=== PATIENT | male | born 1980 | race Caucasian/White ===

== ENCOUNTER 2018-10-28 17:15 | Emergency (ER) | payer SELFPAY ==
[2018-10-28 17:58] LABS: APPEARANCE,URINE CLEAR; BILIRUBIN,URINE NEGATIVE (NEGATIVE); COLOR,URINE YELLOW; GLUCOSE, URINE NEGATIVE (NEGATIVE); KETONES,URINE TRACE mg/dL (NEGATIVE); LEUKOCYTE ESTERASE,URINE NEGATIVE (NEGATIVE); NITRITE,URINE NEGATIVE (NEGATIVE); PROTEIN,URINE NEGATIVE (NEGATIVE); URINE SPECIFIC GRAVITY 1.024; UROBILINOGEN,URINE NEGATIVE mg/dL (<2.0)
--- NOTE | 2018-10-28 18:25 | ER Document Report ---
ED Medical Screen (RME) - General Chief Complaint: Psych Problem Stated Complaint: PSYCH EVAL/IVC Time Seen by Provider: 10/28/18 18:22 Mode of Arrival: Ambulatory Information source: Patient Notes: Patient presents with IVC paperwork for concerns that patient is suicidal and threatened to put a bullet in his brain. Patient is currently going through a divorce and has started using alcohol again. Patient states that he had been clean from alcohol for over 10 years but has since restarted and has also been using marijuana. hx: Anxiety, bipolar, depression I have greeted and performed a rapid initial assessment of this patient. A comprehensive ED assessment and evaluation of the patient, analysis of test results and completion of the medical decision making process will be conducted by additional ED providers. TRAVEL OUTSIDE OF THE [place] IN LAST 30 DAYS: No Physical Exam - Vital signs Vitals: Temp Pulse Resp BP Pulse Ox 98.3 F 82 18 138/79 H 97 10/28/18 17:28 10/28/18 17:28 10/28/18 17:28 10/28/18 17:28 10/28/18 17:28 - General General appearance: Appears well, Alert In distress: None - Psychological Associated symptoms: No: Uncooperative Course - Vital Signs Vital signs: Temp Pulse Resp BP Pulse Ox 98.3 F 82 18 138/79 H 97 10/28/18 17:28 10/28/18 17:28 10/28/18 17:28 10/28/18 17:28 10/28/18 17:28 - Laboratory Laboratory results interpreted by me: 10/28/18 17:27 Urine Ketones TRACE H
[2018-10-28 19:29] LABS: ABSOLUTE EOSINOPHILS # (AUTO) 0.1 10^3/uL (0.0-0.6); ABSOLUTE LYMPHOCYTES (AUTO) 1.1 10^3/uL (0.5-4.7); ABSOLUTE MONOCYTES (AUTO) 0.8 10^3/uL (0.1-1.4); ABSOLUTE NEUT (AUTO) 3.4 10^3/uL (1.7-8.2); BASOPHILS % (AUTO) 0.7 % (0-2); EOSINOPHILS % (AUTO) 1.1 % (0-6); HEMATOCRIT 47.6 % (37.9-51.0); LYMPHOCYTES % (AUTO) 21.2 % (13-45); MEAN CORPUSCULAR HEMOGLOBIN 31.1 pg (27.0-33.4); MEAN CORPUSCULAR HGB CONC 33.6 g/dL (32.0-36.0); MEAN CORPUSCULAR VOLUME 93 fl (80-97); MONOCYTES % (AUTO) 14.2 % (3-13); PLATELET COUNT 191 10^3/uL (150-450); RED BLOOD COUNT 5.14 10^6/uL (4.35-5.55); RED CELL DISTRIBUTION WIDTH 16.1 % (11.5-14.0); SEGMENTED NEUTROPHILS % (AUTO) 62.8 % (42-78); TOTAL CELLS COUNTED % (AUTO) 100 %; WHITE BLOOD COUNT 5.4 10^3/uL (4.0-10.5)
--- NOTE | 2018-10-28 19:45 | EKG REPORT ---
SEVERITY:- NORMAL ECG - SINUS RHYTHM : Confirmed by: Grace Hernandez MD 28-Oct-2018 19:44:43
[2018-10-28 19:49] LABS: ALANINE AMINOTRANSFERASE 78 U/L (21-72); ALBUMIN 4.3 g/dL (3.5-5.0); ALKALINE PHOSPHATASE 37 U/L (38-126); ANION GAP 7 (5-19); ASPARTATE AMINO TRANSFERASE 102 U/L (17-59); BILIRUBIN,DIRECT 0.3 mg/dL (0.0-0.4); BILIRUBIN,TOTAL 0.8 mg/dL (0.2-1.3); BLOOD UREA NITROGEN 17 mg/dL (7-20); CALCIUM 10.2 mg/dL (8.4-10.2); CARBON DIOXIDE 31 mmol/L (22-30); CHLORIDE 102 mmol/L (98-107); GLUCOSE 72 mg/dL (75-110); POTASSIUM 5.4 mmol/L (3.6-5.0); SODIUM 139.7 mmol/L (137-145); TOTAL PROTEIN 7.5 g/dL (6.3-8.2)
[2018-10-28 19:50] LABS: ACETAMINOPHEN < 10 ug/mL (10-30); ALCOHOL < 10 mg/dL (NONE DETECTED); SALICYLATE < 1.0 mg/dL (2.0-20.0)
[2018-10-28 20:16] LABS: URINE AMPHETAMINES SCREEN NEGATIVE; URINE BARBITURATES SCREEN NEGATIVE; URINE BENZODIAZEPINES SCREEN UNCONFIRMED POSITIVE; URINE COCAINE SCREEN NEGATIVE; URINE MARIJUANA (THC) SCREEN UNCONFIRMED POSITIVE; URINE METHADONE SCREEN NEGATIVE; URINE PHENCYCLIDINE SCREEN NEGATIVE
[2018-10-28] MEDS: FLUOXETINE HCL 20 MG CAPSULE PO SCH (20:51)
[2018-10-28] MEDS: HYDROXYZINE PAMOATE 50 MG CAPSULE PO SCH (21:01)
[2018-10-28] MEDS: CLONAZEPAM 1 MG TABLET PO SCH (21:01)
[2018-10-28] MEDS ORDERED: QUETIAPINE FUMARATE 25 MG TABLET PO SCH (22:00)
--- NOTE | 2018-10-28 22:27 | ER Document Report ---
Addendum entered and electronically signed by ANAYELI JENKINS DO 10/29/18 18:26: Discharge - Discharge Clinical Impression: Suicidal ideation, Substance abuse, Noncompliance with medication regimen Depression Qualifiers: Depression Type: unspecified Qualified Code(s): F32.9 - Major depressive disorder, single episode, unspecified Condition: Stable Disposition: HOME, SELF-CARE Additional Instructions: You have been evaluated both medical and behavioral health teams have been deemed appropriate for discharge. You have elected to return back home to [place] for your substance abuse treatment. The behavioral health team has spoken to both the treatment facility and your friend Farncisca who confirms she will pick you up from the airport and assist in entering treatment center. Your laboratory work-up has been provided to assist in the admissions process. If you choose to stay in the local area and would like assistance on substance abuse treatment here, you are encouraged to contact mobile crisis or return to the emergency department. CHRONIC ALCOHOLISM and ALCOHOL ABUSE: Your evaluation reveals evidence of chronic alcoholism, an addiction to alcohol. The tendency to alcoholism may be inherited. Chronic use of alcohol weakens muscles, causes fatty deposits in the liver, damages the stomach, makes you more prone to infections, and can cause defects in unborn children. In the long run, brain atrophy and cirrhosis of the liver result. You are also at greater risk for certain types of cancer, such as cancer of the mouth, throat, stomach, and liver. Counselling services are available to help you. In-hospital treatment programs often help. Support groups such as Alcoholics Anonymous can be very useful in beating this addiction. Your physician can make a referral for you. As alcoholics often are prone to other addictions, you should discuss your use of any other medications with the doctor. ALCOHOL WITHDRAWAL: Your symptoms are caused by alcohol withdrawal. After a period of frequent drinking, the brain and body are changed by the alcohol. When you quit or reduce your drinking, the nervous system becomes unstable. Withdrawal symptoms can start a few hours after your last drink, but sometimes don't begin until a couple of days later. Symptoms can include shakiness, sweating, insomnia, nausea, vomiting, fearfulness, hallucinations, and seizures. In addition to the acute effects of alcohol withdrawal, we often have to deal with the medical effects of alcoholism. These problems often include dehydration, stomach irritation, intestinal bleeding, low blood sugar, liver dis ease, and pancreas inflammation. Treatment for alcohol withdrawal includes mild sedatives, vitamins, and fluids. You need to be with someone who can help if symptoms become severe. Many patients can withdraw at home. Admission to the hospital or a detox facility may be necessary if withdrawal symptoms are severe and uncontrollable. Abstaining from alcohol is the only effective long-term treatment. If you start drinking again, you will not be able to control yourself after the first drink. Treatment programs are available. In addition, many alcoholics benefit from Alcoholics Anonymous or other support groups available through your counselor or mandaen vending machine refiller. AL-ANON and ALA-TEEN are support groups for friends and family members of an alcoholic. Go to the emergency room if you develop persistent vomiting, severe abdominal pain, fever, shortness of breath, hallucinations, uncontrollable tremors, or seizures. DEPRESSION: Your evaluation reveals that you have mental depression. While symptoms may be vague, they often include disturbance of sleep, fatigue, loss of appetite, and general loss of interest in life. While depression may be a side effect of drugs, or a reaction to a major change in your life, many cases have no known cause. If depression is acute, and related to a major loss in your life, you can expect it to clear completely with time. If you have been depressed a long time, are prone to repeated bouts of depression or low mood, or have been thinking of suicide, get help. Depression can be treated with anti-depressant medication and counselling. Long-term depression will often take a few weeks to clear, even with appropriate medication. Follow-up care is important. SUICIDAL IDEATION: Suicidal ideation is a common medical term for thoughts about suicide, which may be as detailed as a formulated plan, without the suicidal act itself. Although most people who undergo suicidal ideation do not commit suicide, some go on to make suicide attempts. The range of suicidal ideation varies greatly from fleeting to detailed planning, role playing, and unsuccessful attempts. While thoughts about suicide are common, most people do not carry out serious actions to commit suicide. Based upon your evaluation and discussion with you, we do not believe you are currently at risk to act upon your thoughts of suicide. You have agreed to return to the Emergency Department, at any time, if you feel inclined to act upon your suicidal thoughts. FOLLOW-UP CARE: If you have been referred to a physician for follow-up care, call the physicians office for an appointment as you were instructed or within the next two days. If you experience worsening or a significant change in your symptoms, notify the physician immediately or return to the Emergency Department at any time for re-evaluation. Prescriptions: Disulfiram [Antabuse 250 mg Tablet] 250 mg PO DAILY #10 tablet Referrals: [facility] [Outside] - Follow up as needed Scribe Attestation: 10/28/18 20:48 I personally performed the services described in the documentation, reviewed and edited the documentation which was dictated to the scribe in my presence, and it accurately records my words and actions. Addendum entered and electronically signed by BAHMAN FAGAN LCSWA 10/29/18 17:46: Discharge - Discharge Clinical Impression: Suicidal ideation, Substance abuse, Noncompliance with medication regimen Depression Qualifiers: Depression Type: unspecified Qualified Code(s): F32.9 - Major depressive disord er, single episode, unspecified Condition: Stable Disposition: HOME, SELF-CARE Additional Instructions: You have been evaluated both medical and behavioral health teams have been deemed appropriate for discharge. You have elected to return back home to [place] for your substance abuse treatment. The behavioral health team has spoken to both the treatment facility and your friend Francisca who confirms she will pick you up from the airport and assist in entering treatment center. Your laboratory work-up has been provided to assist in the admissions process. If you choose to stay in the local area and would like assistance on substance abuse treatment here, you are encouraged to contact mobile crisis or return to the emergency department. CHRONIC ALCOHOLISM and ALCOHOL ABUSE: Your evaluation reveals evidence of chronic alcoholism, an addiction to alcohol. The tendency to alcoholism may be inherited. Chronic use of alcohol weakens muscles, causes fatty deposits in the liver, damages the stomach, makes you more prone to infections, and can cause defects in unborn children. In the long run, brain atrophy and cirrhosis of the liver result. You are also at greater risk for certain types of cancer, such as cancer of the mouth, throat, stomach, and liver. Counselling services are available to help you. In-hospital treatment programs often help. Support groups such as Alcoholics Anonymous can be very useful in beating this addiction. Your physician can make a referral for you. As alcoholics often are prone to other addictions, you should discuss your use of any other medications with the doctor. ALCOHOL WITHDRAWAL: Your symptoms are caused by alcohol withdrawal. After a period of frequent drinking, the brain and body are changed by the alcohol. When you quit or reduce your drinking, the nervous system becomes unstable. Withdrawal symptoms can start a few hours after your last drink, but sometimes don't begin until a couple of days later. Symptoms can include shakiness, sweating, insomnia, nausea, vomiting, fearfulness, hallucinations, and seizures. In addition to the acute effects of alcohol withdrawal, we often have to deal with the medical effects of alcoholism. These problems often include dehydration, stomach irritation, intestinal bleeding, low blood sugar, liver disease, and pancreas inflammation. Treatment for alcohol withdrawal includes mild sedatives, vitamins, and fluids. You need to be with someone who can help if symptoms become severe. Many patients can withdraw at home. Admission to the hospital or a detox facility may be necessary if withdrawal symptoms are severe and uncontrollable. Abstaining from alcohol is the only effective long-term treatment. If you start drinking again, you will not be able to control yourself after the first drink. Treatment programs are available. In addition, many alcoholics benefit from Alcoholics Anonymous or other support groups available through your counselor or mandaen vending machine refiller. AL-ANON and ALA-TEEN are support groups for friends and family members of an alcoholic. Go to the emergency room if you develop persistent vomiting, severe abdominal pain, fever, shortness of breath, hallucinations, uncontrollable tremors, or seizures. DEPRESSION: Your evaluation reveals that you have mental depression. While symptoms may be vague, they often include disturbance of sleep, fatigue, loss of appetite, and general loss of interest in life. While depression may be a side effect of drugs, or a reaction to a major change in your life, many cases have no known cause. If depression is acute, and related to a major loss in your life, you can expect it to clear completely with time. If you have been depressed a long time, are prone to repeated bouts of depression or low mood, or have been thinking of suicide, get help. Depression can be treated with anti-depressant medication and counselling. Long-term depression will often take a few weeks to clear, even with appropriate medication. Follow-up care is important. SUICIDAL IDEATION: Suicidal ideation is a common medical term for thoughts about suicide, which may be as detailed as a formulated plan, without the suicidal act itself. Although most people who undergo suicidal ideation do not commit suicide, some go on to make suicide attempts. The range of suicidal ideation varies greatly from fleeting to detailed planning, role playing, and unsuccessful attempts. While thoughts about suicide are common, most people do not carry out serious actions to commit suicide. Based upon your evaluation and discussion with you, we do not believe you are currently at risk to act upon your thoughts of suicide. You have agreed to return to the Emergency Department, at any time, if you feel inclined to act upon your suicidal thoughts. FOLLOW-UP CARE: If you have been referred to a physician for follow-up care, call the physicians office for an appointment as you were instructed or within the next two days. If you experience worsening or a significant change in your symptoms, notify the physician immediately or return to the Emergency Department at any time for re-evaluation. Referrals: [facility] [Outside] - Follow up as needed Scribe Attestation: 10/28/18 20:48 I personally performed the services described in the documentation, reviewed and edited the documentation which was dictated to the scribe in my presence, and it accurately records my words and actions. Original Note: Entered by JERRY MILLS SCRIBE 10/28/182007 Acting as scribe for:CHIP HANKINS MD ED Psych Disorder / Suicide - General Chief Complaint: Psych Problem Stated Complaint: PSYCH EVAL/IVC Time Seen by Provider: 10/28/18 18:22 Mode of Arrival: Ambulatory Notes: 38-year-old male who presents to the emergency department today after going to [facility] today to get some help for his alcohol abuse. Patient states that him and his are going through a divorce now and he is anxious because of "losing his kids". Patient states that he is from [facility] and has some friends from the [facility] that came down a week ago to pick him up to bring him here for "help". Patient states he was an alcoholic in the past and "quit cold turkey" x12 years ago and has not drank until these recent events. Patient states he was "trapped" into coming to the ED today. TRAVEL OUTSIDE OF THE [place] IN LAST 30 DAYS: No - Related Data Allergies/Adverse Reactions: No Known Allergies Allergy (Unverified 10/28/18 18:29) Past Medical History - General Information source: Patient - Social History Smoking Status: Current Every Day Smoker Frequency of alcohol use: Heavy Drug Abuse: Marijuana Lives with: Family Family History: Reviewed & Not Pertinent Patient has suicidal ideation: Yes Patient has homicidal ideation: No Psychiatric Medical History: Reports: Hx Bipolar Disorder, Hx Depression Surgical Hx: Negative Review of Systems - Review of Systems Constitutional: No symptoms reported EENT: No symptoms reported Cardiovascular: No symptoms reported Respiratory: No symptoms reported Gastrointestinal: No symptoms reported Genitourinary: No symptoms reported Male Genitourinary: No symptoms reported Musculoskeletal: No symptoms reported Skin: No symptoms reported Hematologic/Lymphatic: No symptoms reported Neurological/Psychological: See HPI, Anxiety -: Yes All other systems reviewed and negative Physical Exam - Vital signs Vitals: Temp Pulse Resp BP Pulse Ox 98.3 F 82 18 138/79 H 97 10/28/18 17:28 10/28/18 17:28 10/28/18 17:28 10/28/18 17:28 10/28/18 17:28 - Notes Notes: Physical Exam: General: Alert, appears well. HEENT: Normocephalic. Atraumatic. PERRL. Extraocular movements intact. Oropharynx clear. Neck: Supple. Non-tender. Respiratory: No respiratory distress. Clear and equal breath sounds bilaterally. Cardiovascular: Regular rate and rhythm. Abdominal: Normal Inspection. Non-tender. No distension. Normal Bowel Sounds. Back: Non-tender. No deformity or step off. Extremities: Moves all four extremities. Upper extremities: Normal inspection. Normal ROM. Lower extremities: Normal inspection. No edema. Normal ROM. Neurological: Normal cognition. AAOx4. Normal speech. Psychological: Appears somewhat anxious. Skin: Warm. Dry. Normal color. Course - Vital Signs Vital signs: Temp Pulse Resp BP Pulse Ox 98.3 F 82 18 138/79 H 97 10/28/18 17:28 10/28/18 17:28 10/28/18 17:28 10/28/18 17:28 10/28/18 17:28 - Laboratory Result Diagrams: 10/28/18 19:00 10/28/18 19:00 Laboratory results interpreted by me: 10/28/18 10/28/18 10/28/18 17:27 19:00 19:00 RDW 16.1 H Monocytes % 14.2 H Potassium 5.4 H Carbon Dioxide 31 H Glucose 72 L AST 102 H ALT 78 H Alkaline Phosphatase 37 L Urine Ketones TRACE H Salicylates < 1.0 L Acetaminophen < 10 L Discharge - Discharge Clinical Impression: Suicidal ideation, Substance abuse, Noncompliance with medication regimen Depression Qualifiers: Depression Type: unspecified Qualified Code(s): F32.9 - Major depressive disorder, single episode, unspecified Condition: Stable Disposition: PSYCH HOSP/UNIT Scribe Attestation: 10/28/18 20:48 I personally performed the services described in the documentation, reviewed and edited the documentation which was dictated to the scribe in my presence, and it accurately records my words and actions. I personally performed the services described in the documentation, reviewed and edited the documentation which was dictated to the scribe in my presence, and it accurately records my words and actions.
[2018-10-29] MEDS: HYDROXYZINE PAMOATE 50 MG CAPSULE PO SCH ×2 (06:26→14:23)
[2018-10-29] MEDS: CLONAZEPAM 1 MG TABLET PO SCH ×2 (06:26→14:23)
--- NOTE | 2018-10-29 10:04 | ER Document Report ---
Doctor's Note Notes: 10/29/18 10:02 Patient seen and examined, vital signs reviewed, patient's chart reviewed, had mild transaminitis, consistent with the patient's alcohol consumption, he is otherwise very cooperative this morning, had a long discussion with the patient about his current thoughts, denies suicidal homicidal ideation, he reports he is currently going through divorce, is concerned about not seeing his kids as often, is from [place], he came up here after a friend picked him up from a hotel he was staying in [place], to find work-up in this area, and then his friend left to go to [place] and is currently staying with a friend of a friend, he apparently had made statements that he wanted to "blow his brains out", he has been drinking more recently as well, but he states that he was saying that in passing, and would never harm himself, he reports that he sold his firearm recently, he does take medication for depression and anxiety, including Klonopin, and Prozac. He has a provider in [place] that he sees that he gets his medications through. Denies any hallucinations at this time, and has full conversation without tangential thinking or delusion. 10/29/18 17:19 Behavioral health team is seen the patient over the course of the day, and discussed with patient disposition, to rehab facility in [place], discussed flight times from [facility], patient denies any suicidal ideations at this time, I believe he is medically cleared to be discharged, he wished to have disulfiram/Antabuse, to see if it will help him in the meantime while he is getting set up for rehab before he gets to [place] he does not want any temptations, I will give the patient a dose of this in the emergency department, and give him a prescription, the rehab facility does have open beds, he has worked there in the past, he does have a support system with his girlfriend and mother when he gets back to [place] and they will pick him up from the airport, this is been discussed by phone with the patient's family and he is agreeable with this plan of care as well. I did encourage him to stay in the emergency department overnight, and then leave in the morning so he can get his flight, however the patient states that he would like to be discharged prior to that so he can olive picker the prescription, and get some "fresh air" I do not feel the patient needs to leave AGAINST MEDICAL ADVICE at this point, but did encourage him to stay however he wished to be discharged, patient will be discharged on his own accord, and advised the above plan.
[2018-10-29] MEDS: FLUOXETINE HCL 20 MG CAPSULE PO SCH (10:06)
--- NOTE | 2018-10-29 15:56 | RADIOLOGY REPORT (SQ) ---
EXAM DESCRIPTION: CHEST 2 VIEWS COMPLETED DATE/TIME: 10/29/2018 3:39 pm REASON FOR STUDY: pre-admission screening COMPARISON: None. EXAM PARAMETERS: NUMBER OF VIEWS: two views TECHNIQUE: Digital Frontal and Lateral radiographic views of the chest acquired. RADIATION DOSE: NA LIMITATIONS: none FINDINGS: LUNGS AND PLEURA: No opacities, masses or pneumothorax. No pleural effusion. MEDIASTINUM AND HILAR STRUCTURES: No masses or contour abnormalities. HEART AND VASCULAR STRUCTURES: Heart normal size. No evidence for failure. BONES: No acute findings. HARDWARE: None in the chest. OTHER: No other significant finding. IMPRESSION: NO ACUTE RADIOGRAPHIC FINDING IN THE CHEST. TECHNICAL DOCUMENTATION: JOB ID: [id number] [place]-72 2010 [employer]- All Rights Reserved Reading location - IP/workstation name: [employer] [place]
[2018-10-29] MEDS ORDERED: NICOTINE 21 MG/24 HR PATCH.TD24 TD ONE (16:13)
[2018-10-29] MEDS ORDERED: DISULFIRAM 250 MG TABLET PO ONE (17:16)
[2018-10-29 19:48] VITALS: BP 122/87
--- NOTE | 2018-10-31 14:17 | PSYCHOLOGICAL NOTE ---
Psych Note - Psych Note Date seen by psych provider: 10/29/18 Time seen by psych provider: 08:15 - 1st attempt [id number] Psych Note: Reason for Consult: IVC Consent Permissions: mother, Lizeth, , Friend in [place] Francisca, , Friend local in [place] Cristal, Pt brought in by [employer] with IVC papers in hand. Mobile crisis staff has also come to the ER with reports that pt is having suicidal ideation with intent to shoot himself. unknown previous attempts. Pt is cooperative with staff and [employer] with pt in [facility]. Pt denies any active SI or HI, along with denies any auditory or visual hallucinations. Pt states he is from [place] and has been here for two days. Pt was unclear as to why he is in [place] stating he wants help. Patient reports that he came to [place] and attempt to get into rehab. He was going with a friend however that friend ended up changing his mind. Patient is originally from [place] and works with patients going through substance abuse. He reports that he thought coming to [place] would be better as he is embarrassed that he relapsed in his own sobriety. Patient reports that he relapsed while he was going through his divorce. Patient was 11 years and has 3 children. Patient denies having access to any guns states that he got rid of his pistol however confirms he still does have his hunting rifles back at home in [place]. He reports that his mother currently has is 3030 however thinks that his 308 may be in the guest closet upstairs and his home that is currently occupied by his . He confirms that he would like his mother contacted so she can obtain his other rifle and ensure continued no access. Patient states that while he made suicidal comments that he would never follow through as "I love myself too much to kill myself and never when I leave my children... 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 Patient reports he needs to go get his mind right so he can take care of his children which means returning to rehab. Behavioral health team coordinated with patient's mother, friend in [place] Francisca, and local friend here in [place], Cristal, patient's plan of care i.e. continued no access to weapons, rehab location, paperwork for admission, and assisted in coordinating travel. Patient is alert and orientated to person, place, time and circumstance. Mood is euthymic with congruent affect. Patient denies suicidal and homicidal ideation. He confirms suicidal comments when going through attempted sobriety, detox, and intoxication. Patient denies means and intent. Delusions are absent behaviors congruent with an intact reality based presentation i.e. organized and linear thought process. Eye contact is well-maintained. Conversational speech is within normal rate, tone and prosody. Intellectual abilities appear to be within the average range. Attention and concentration are currently good. Insight, judgment, impulse control is currently good. No medication recommendations at this time 291.9 (F10.99) Alcohol Use Disorder; resent relapse 311 (F32.9) unspecified depressive disorder in connection to currently going through divorce and relapsing Impression/plan: patient is recommended for rescind of IVC and is cleared from acute psychiatric services. Patient no longer meets IVC criteria per [place] GS 122C. Patient relapsed with alcohol and came to [place] and attempt to get into alcohol treatment with a friend; unfortunately this plan fell through. Patient confirms he did make suicidal comments however denies plan means and intent. Patient voluntarily provided behavioral health team contact information to ensure continued no access to any firearms. Behavior health team worked closely with patient's contacts both here and in [place] and set up plan of care. Patient's local friend was assisting the patient to get to the airport. Patient purchased a plane ticket (observed by behavioral health team). Behavior health team coordinated with his friend in [place] to be picked up from the airport. The behavioral health team spoke with both the friend in [place] and rehab center in [place] for the patient's placement. Patient was offered to stay in the emergency department overnight prior to his flight however he declined. The attending physician provided prescription for Antabuse to help patient maintain sobriety until his arrival to the rehab center in [place]. Patient is highly encouraged to follow through with this voluntary placement. Dr. Luo was consulted to care management of this patient; attending physicians in agreement with recommendations and disposition.
== END 2018-10-29 19:30 | disposition home or self-care (01) ==
LOC: ER 17:15
DX: F10.10 Alcohol abuse, uncomplicated (principal); F12.10 Cannabis abuse, uncomplicated; F32.9 Major depressive disorder, single episode, unspecified; R45.851 Suicidal ideations; F41.9 Anxiety disorder, unspecified; Z91.14 Patient's other noncompliance with medication regimen; Z63.5 Disruption of family by separation and divorce; F17.200 Nicotine dependence, unspecified, uncomplicated
CPT/HCPCS: 93005; 99284; 36415; 80307 ×4; 85025; 80053; 81001; 71046; 93010; J3490